=== PATIENT | female | born 1960 | race Caucasian/White ===

== ENCOUNTER 2018-05-05 06:43 | Day surgery (SDC) | payer OTHER ==
[~2018-05-05] VITALS: Ht 147.3 cm; Wt 84.5 kg
[~2018-05-05 06:43] MED LIST: Prinivil10 MG PO; ROSU10TA PO; VERAMYST
[2018-05-05] MEDS ORDERED: Bactrim 400-801 EACH PO (07:12)
--- NOTE | 2018-05-05 08:12 | NUR ---
05/05/18 0812 Addie Pina INJECTED FOR IRRIGATION PER DR ROSAS
== END 2018-05-05 08:53 | disposition home or self-care (01) ==
LOC: ORSCSDS 06:43
PROVIDERS: Student in an Organized Health Care Education/Training Program
PROC: 0DBP8ZX Excision of Rectum, Via Natural or Artificial Opening Endoscopic, Diagnostic (ICD-10-PCS; principal; 2018-05-05 08:00)
DX: Z12.11 Encounter for screening for malignant neoplasm of colon (principal); K62.1 Rectal polyp; K57.30 Diverticulosis of large intestine without perforation or abscess without bleeding; I10 Essential (primary) hypertension; Z79.899 Other long term (current) drug therapy
CPT/HCPCS: 88305; J1980; J2405; J7120

== ENCOUNTER 2019-10-19 05:11 | Emergency (ER) | payer OTHER ==
[~2019-10-19] VITALS: Ht 147.3 cm; Wt 83.9 kg
[~2019-10-19 05:11] MED LIST changes: +Bactrim 400-801 EACH PO
[2019-10-19] MEDS ORDERED: Pravachol40 MG PO (05:25)
[2019-10-19] MEDS ORDERED: GUAI200 PO (05:28)
[2019-10-19] MEDS ORDERED: CYCL10 PO (07:12)
[2019-10-19] MEDS ORDERED: Roxicodone5 MG PO (07:12)
[2019-10-19] MEDS ORDERED: IBUP600 PO (07:12)
== END 2019-10-19 07:30 | disposition home or self-care (01) ==
LOC: ER 05:11
DX: M54.5 Low back pain (principal); I10 Essential (primary) hypertension; E78.00 Pure hypercholesterolemia, unspecified; Z88.8 Allergy status to other drugs, medicaments and biological substances; Z79.899 Other long term (current) drug therapy
CPT/HCPCS: 72100; 96372; 99283-25; J1885

== ENCOUNTER 2019-10-25 10:58 | Emergency (ER) | payer OTHER ==
[~2019-10-25] VITALS: Ht 147.3 cm; Wt 81.7 kg
[~2019-10-25 10:58] MED LIST changes: +CYCL10 PO; +GUAI200 PO; +IBUP600 PO; +Pravachol40 MG PO; +Roxicodone5 MG PO
[2019-10-25 12:02] LABS: Source, Urine Clean Catch
[2019-10-25 12:26] LABS: Bilirubin, Urine Neg (Neg); Blood, Urine Neg (Neg); Glucose Qualitative, Urine Neg (Neg); Ketones, Urine Neg (Neg); Leukocyte Esterase, Urine 3+ (Neg); Nitrite, Urine Neg (Neg); Protein, Urine 1+ (Neg); Specific Gravity, Urine 1.025 (1.003-1.022); Urobilinogen, Urine NORM (Normal)
[2019-10-25 12:40] LABS: BASOPHILS ABSOLUTE AUTO 0.06 K/mm3 (0.00-0.23); BASOPHILS PERCENT AUTO 1 % (0-2); EOSINOPHILS ABSOLUTE AUTO 0.45 K/mm3 (0.00-0.68); EOSINOPHILS PERCENT AUTO 5 % (0-6); Hematocrit 43.5 % (33.0-51.0); Hemoglobin 14.1 g/dL (11.5-16.0); IMMATURE GRAN ABSOLUTE AUTO 0.02 K/mm3 (0.00-0.10); IMMATURE GRAN PERCENT AUTO 0 % (0-1); LYMPHOCYTES ABSOLUTE AUTO 1.95 K/mm3 (0.84-5.20); LYMPHOCYTES PERCENT AUTO 22 % (21-46); MONOCYTES ABSOLUTE AUTO 0.63 K/mm3 (0.16-1.47); MONOCYTES PERCENT AUTO 7 % (4-13); Mean Corpuscular HGB 29.1 pg (26.0-34.0); Mean Corpuscular HGB Conc 32.4 g/dL (31.5-36.5); Mean Corpuscular Volume 90 fL (80-100); NEUTROPHILS ABSOLUTE AUTO 5.72 K/mm3 (1.96-9.15); NEUTROPHILS PERCENT AUTO 65 % (41-73); Platelet Count 287 K/mm3 (150-400); RDW Coefficient Variation 13.7 % (11.7-14.2); RDW Standard Deviation 45.4 fL (35.1-46.3); Red Blood Cell Count 4.85 M/mm3 (3.80-5.20); White Blood Cell Count 8.83 K/mm3 (4.00-11.30)
[2019-10-25 13:02] LABS: Alanine Aminotransfer (ALT/SGP 53 U/L (12-78); Albumin, Blood 4.7 g/dL (3.4-5.0); Albumin/Globulin Ratio 1.2 (0.8-1.8); Alk Phos 106 U/L (50-136); Anion Gap 8 mmol/L (6-16); Aspartate Aminotrans (AST/SGOT 42 U/L (12-37); Bilirubin, Total 0.6 mg/dL (0.1-1.0); Blood Urea Nitrogen 16 mg/dL (8-24); Bun/Creatinine Ratio 20.2 (12.0-20.0); CO2, Blood 24 mmol/L (21-32); Calcium, Blood 9.7 mg/dL (8.5-10.1); Chloride, Blood 104 mmol/L (98-108); Creatinine, Blood 0.79 mg/dL (0.40-1.00); Globulin, Blood 3.8 g/dL (2.2-4.0); Glomerular Filtration Rate >60 (60-); Glucose, Blood 112 mg/dL (70-99); Potassium, Blood 4.3 mmol/L (3.5-5.5); Sodium, Blood 136 mmol/L (136-145); Total Protein, Blood 8.5 g/dL (6.4-8.2)
[2019-10-25 13:09] LABS: Appearance, Urine Clear (Clear); Color, Urine Yellow (P-Yellow)
[2019-10-25 13:10] LABS: Bacteria Few /hpf; Red Blood Cells, Urine 0-2 /hpf (0-2); Squamous Epithelial Cells Few /hpf (Few)
[2019-10-25 13:11] LABS: Calcium Oxalate Crystals Few /hpf
[2019-10-25] MEDS ORDERED: HYDR1TAB94 PO (13:56)
[2019-10-25] MEDS ORDERED: Valium5 MG PO (13:56)
== END 2019-10-25 14:36 | disposition home or self-care (01) ==
LOC: ER 10:58
PROVIDERS: Emergency Medicine
DX: M54.5 Low back pain (principal); R20.0 Anesthesia of skin; I10 Essential (primary) hypertension; E78.00 Pure hypercholesterolemia, unspecified; Z88.1 Allergy status to other antibiotic agents; Z79.899 Other long term (current) drug therapy
CPT/HCPCS: 74176; 80053; 81001; 85025; 87086; 96374; 96375; 99284-25; A9270-GY; J1885; J3360

== ENCOUNTER → 2021-09-16 | Outpatient (CLI) | payer OTHER ==
[~2021-09-16] MED LIST changes: +HYDR1TAB94 PO; +Valium5 MG PO
== END | disposition home or self-care (01) ==
LOC: LAB 10:58 → LAB SHORT 10:58
DX: L24.9 Irritant contact dermatitis, unspecified cause (principal); L57.8 Other skin changes due to chronic exposure to nonionizing radiation; Z71.89 Other specified counseling
CPT/HCPCS: 87070; 87205